=== PATIENT | female | born 1990 | race Two or more races ===

== ENCOUNTER 2025-01-24 22:17 | Emergency (ER) | payer SELFPAY ==
[2025-01-24 22:20] VITALS: BMI 18.8
[2025-01-24 22:53] VITALS: BP 120/76; PULSE 83; RESP 18; TEMP 36.8; O2SAT 100
--- NOTE | 2025-01-24 23:48 | EKG_ITS ---
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
--- NOTE | 2025-01-25 00:19 | PD.EDRME ---
Rapid Medical Screening Exam RME Arrival date/time: 01/24/25 22:17 34F with history of anxiety/panic attacks and tubal ligation presents to ED with 2 days of CP and SOB. Patient denies URI symptoms and SI/HI. Chief Complaint: General Adult/Misc Complain Time Seen by Provider: 01/25/25 00:10 Vital signs: Vital Signs Temperature 98.3 F 01/24/25 22:53 Pulse Rate 83 01/24/25 22:53 Respiratory Rate 18 01/24/25 22:53 Blood Pressure 120/76 01/24/25 22:53 Pulse Oximetry (%) 100 01/24/25 22:53 Oxygen Delivery Method Room Air 01/24/25 22:53
== END 2025-01-25 00:29 | disposition left against medical advice (07) ==
LOC: SERX 01-25 00:36
PROVIDERS: Emergency Provider Emergency Medicine
DX: R06.02 Shortness of breath (principal); Z53.29 Procedure and treatment not carried out because of patient's decision for other reasons
CPT/HCPCS: 93005; 99281

== ENCOUNTER 2025-03-17 18:46 | Emergency (ER) | payer BC, SELFPAY ==
--- NOTE | 2025-03-17 18:59 | EKG_ITS ---
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
[2025-03-17 19:06] VITALS: BP 134/76; PULSE 87; RESP 20; TEMP 36.4; O2SAT 99; BMI 19.0
--- NOTE | 2025-03-17 19:30 | EDNOTE_ITS ---
<Statement entered by Janeth Lowry MD - 03/19/25 04:27> As co-signing physician, I was present and available for consult prn. I concur with the plan and care as documented by the midlevel provider. ED Anxiety RME/HPI General Chief Complaint: Shortness of Breath/Dyspnea Stated Complaint: HEART FEELS LIKE IT'S SKIPPING X 1400 WITH SOB Time Seen by Provider: 03/17/25 19:22 Arrival date/time: 03/17/25 18:46 34F with no significant PMH presents to ED with 1 day of heart palpitations. This has been an intermittent chronic problem for her as she had a normal Holter monitor about 5 years ago. Patient states she took half a Xanax but didn't feel different. Limitations: no limitations Related Data Previous Rx's ?Medication ?Instructions ?Recorded acetaminophen 325 mg capsule 650 mg (2 x 325 mg) PO QI D PRN 07/10/21 pain #60 caps ibuprofen 600 mg tablet 600 mg PO Q6H PRN pain #30 t abs 07/10/21 omeprazole 20 mg capsule,delayed 20 mg PO QDAY #30 cap s 12/02/21 release Allergies Allergy/AdvReac Type Severity Reaction Status Date / Time cephalexin Allergy Severe Hives Verified 03/17/25 18:49 ciprofloxacin (From Cipro) Allergy Severe rash Verified 03/17/25 18:49 codeine Allergy Severe Hives Verified 03/17/25 18:49 nitrofurantoin Allergy Severe HIVES, Verified 03/17/25 18:49 TROUBLE BREATHING sulfamethoxazole Allergy Severe Hives Verified 03/17/25 18:49 trimethoprim Allergy Severe Hives Verified 03/17/25 18:49 Review of Systems Review of Systems Systems Reviewed: All systems reviewed, normal except as documented Constitutional Constitutional: Reports system reviewed and no additional complaints, except as documented, Denies fever(s) and Denies headache(s) ENT Ears, Nose, Mouth, and Throat: Denies disequilibrium and Denies headache(s) Cardiovascular Cardiovascular: Reports system reviewed and no additional complaints, except as documented, Denies chest pain, Denies dyspnea and Reports palpitations Respiratory Respiratory: Reports system reviewed and no additional complaints, except as documented, Denies cough and Denies dyspnea Gastrointestinal Gastrointestinal: Reports system reviewed and no additional complaints, except as documented, Denies abdominal pain, Denies nausea and Denies vomiting Neurologic Neurologic: Reports system reviewed and no additional complaints, except as documented, Denies confusion, Denies disequilibrium and Denies headache(s) Psychiatric Psychiatric: Denies confusion Endocrine Endocrine: Reports palpitations Past Medical History Past Medical History CARDIAC: Negative Cardiac Disorders or Congestive Heart Failure RESPIRATORY: Positive Tuberculosis; Negative Chronic Obstructive Pulmonary Disease (COPD) or Asthma GASTROINTESTINAL: Positive Gastrointestinal Disorders and Pancreatitis GENITOURINARY: Negative Renal Disease ENDOCRINE: Negative Diabetes Mellitus Type 1 or Diabetes Mellitus Type 2 HEMATOLOGIC: Negative Sickle Cell Disease Surgical History SURGICAL: Positive Tubal Ligation and Section Social History SMOKING STATUS: Never smoker SUBSTANCE USE: does not use ED Exam General Limitations: Present no limitations General appearance: Present alert, in no apparent distress and anxious Head Head exam: Present atraumatic Eye Eye exam: Present normal appearance, PERRL and EOMI ENT ENT exam: Present normal exam, normal oropharynx and mucous membranes moist Neck Neck exam: Present normal inspection, full ROM and trachea midline Chest Chest inspection: Present normal inspection and symmetric chest wall rise Respiratory Respiratory exam: Present normal lung sounds bilaterally Cardiovascular Cardiovascular exam: Present regular rate, normal rhythm and normal heart sounds Abdominal Exam Abdominal exam: Present soft and normal bowel sounds Extremities Exam Extremities exam: Present normal inspection and full ROM Back Exam Back exam: Present normal inspection and full ROM Neurological Exam Neurological exam: Present alert, oriented X3 and CN II-XII intact Psychiatric Psychiatric exam: Present normal affect and normal mood Skin Skin exam: Present warm, dry, intact and normal color Course Quality Measures none Orders Category Date Time Status EKG (ED ONLY) *Do not use* NOW Care 03/17/25 18:59 Completed EKG (ED Only) Stat Exams 03/17/25 18:59 Draft CBC Stat Lab 03/17/25 19:22 Ordered CMP [Comprehensive Metabolic Panel] Stat Lab 03/17/25 19:22 Ordered Drug Screen,Urine Stat Lab 03/17/25 19:22 Ordered HCG Qualitative,Urine Stat Lab 03/17/25 19:22 Ordered TSH [Thyroid Stimulating Hormone] Stat Lab 03/17/25 19:22 Ordered Urinalysis, C/S if Indicated Stat Lab 03/17/25 19:22 Ordered Vital Signs Vital signs: Vital Signs Temperature 97.5 F 03/17/25 19:06 Pulse Rate 87 03/17/25 19:06 Respiratory Rate 20 03/17/25 19:06 Blood Pressure 134/76 H 03/17/25 19:06 Pulse Oximetry (%) 99 03/17/25 19:06 Oxygen Delivery Method Room Air 03/17/25 19:06 Anxiety MDM Narrative MDM Narrative: 34F with no significant PMH presents to ED with 1 day of heart palpitations. This has been an intermittent chronic problem for her as she had a normal Holter monitor about 5 years ago. Patient states she took half a Xanax but didn't feel different. Physical exam reveals normal WOB. Patient is afebrile, alert, but anxious. EKG is NSR. CXR normal. No leukocytosis. CMP unremarkable. Trop normal. TSH normal. UA clean. Tox/hcg neg. Cable Former given. Patient data External records reviewed:: [facility] previous records Clinical information provided by:: patient Social determinants that could affect healthcare access:: none Patient has the following chronic illnesses:: none How is presenting disease/condition affected by chronic disease/condition?: no chronic disease Evaluation data The following diagnostics were reviewed and interpreted by me:: lab results, radiology exam(s) and EKG tracing(s) Lab and/or radiology exams considered but not ordered:: ordered Interpretation Summary: above Medications / Prescriptions Medications or Prescriptions considered but not ordered:: not ordered Medication administrations:: n/a Consultations Consultation(s) initiated? (list below): No Diagnosis Differential diagnosis anxiety: hyperventilation, panic disorder, acute anxiety and other (heart palps w regular cardiac rhythm) Most likely diagnosis given after review of the tests above:: heart palps w regular cardiac rhythm Admission Indicated Admission indicated?: not indicated Admission Request Was there a request for admission?: No Disposition Plan Disposition Plan: Discharge Discharge Attestation Discharge Attestation: The patient and all family members were given an opportunity to ask questions and understood the discharge instructions. Discharge instructions specifically effects, indications for sooner follow up or return to the emergency department, and the expected course of current diagnosis. Patient condition: Stable Discharge Plan Plan Patient Disposition: HOME (Self Care) Discharge Disposition comment: Stable Prescriptions/Referrals Prescriptions/Med Rec: No Action ibuprofen 600 mg tablet 600 mg PO Q6H PRN (Reason: pain) Qty: 30 0RF acetaminophen 325 mg capsule 650 mg PO QID PRN (Reason: pain) Qty: 60 0RF omeprazole 20 mg capsule,delayed release(DR/EC) 20 mg PO QDAY Qty: 30 0RF Referrals: No Primary/Family,Physician [Primary Care Provider] - In 1 week Problem List Clinical Impression: Palpitations with regular cardiac rhythm Patient/Caregiver Discharge Instructions Education Materials: ED Palpitations Additional Instructions: Please follow-up with PCP within 24-48 hours and return immediately if symptoms worsen. Follow-up with brisket puller. Print Language: Mauritanian Stand Alone Forms: Patient Portal Info Letter BOLA/PERI Supervising Physician GAVIN Supervising Physician: Dr. Lowry
--- NOTE | 2025-03-17 19:35 | XR_ITS ---
Examination: PA chest single view TECHNIQUE: Upright PA chest single view INDICATIONS: Tachycardia today FINDINGS: Normal heart size No pulmonary edema Minor atelectasis left base Prominent osteopenia IMPRESSION: Normal heart size No pulmonary edema
[2025-03-17 19:43] LABS: Basophils # (Auto) 0.1 Thou/mm3 (0.0-0.2); Basophils % (Auto) 1 % (0-2.5); Eosinophils # (Auto) 0.1 Thou/mm3 (0.0-0.5); Eosinophils % (Auto) 1 % (0-10); Hematocrit 39.6 % (36.0-46.0); Hemoglobin 14.3 g/dL (12.0-16.0); Immature Granulocytes % (Auto) 0 % (0-0); Immature Granulocytes Auto 0.02 Thou/mm3 (0.00-0.00); Lymphocytes # (Auto) 1.7 Thou/mm3 (1.0-4.8); Lymphocytes % (Auto) 22 % (10-50); Mean Corpuscular HGB Conc 36.1 g/dl (31.0-37.0); Mean Corpuscular Hemoglobin 32.4 pg (25.0-35.0); Mean Corpuscular Volume 90 fL (80-100); Monocytes # (Auto) 0.4 Thou/mm3 (0.0-0.8); Monocytes % (Auto) 5 % (0-12); Neutrophils # (Auto) 5.5 Thou/mm3 (1.8-7.7); Neutrophils % (Auto) 71 % (37-80); Nucleated Red Blood Cell % 0 /100 WBC (0); Platelet Count 262 Thou/mm3 (140-440); RDW Standard Deviation 38.8 fL (36.4-46.3); Red Blood Count 4.42 Miln/mm3 (4.00-5.20); White Blood Count 7.7 Thou/mm3 (3.6-11.0)
[2025-03-17 19:59] LABS: Collection Type, Urine Clean Catch
[2025-03-17 20:02] LABS: Amphetamine/Methamp Scrn,U Negative (Negative); Barbiturate Screen,Urine Negative (Negative); Benzodiazepines Screen,Urine Negative (Negative); Benzoylecgonine Screen, Ur Negative (Negative); Fentanyl Screen,Urine Negative (Negative); Opiate Screen,Urine Negative (Negative); THC Screen,Urine Negative (Negative)
[2025-03-17 20:05] LABS: HCG Qualitative,Urine Negative
[2025-03-17 20:08] LABS: Alanine Aminotransferase 32 U/L (10-49); Albumin, Serum 4.8 gm/dL (3.5-5.0); Albumin/Globulin Ratio 1.5 (1.2-2.2); Alkaline Phosphatase 63 U/L (46-116); Anion Gap 7 (7-16); Aspartate Amino Transferase 20 U/L (0-34); BUN/Creatinine Ratio 11 Ratio (12-20); Bilirubin,Total 0.7 mg/dL (0.3-1.2); Blood Urea Nitrogen 9 mg/dL (9-23); Calcium 10.1 mg/dL (8.3-10.6); Calcium (Corrected) 10.1 mg/dL (8.5-10.1); Carbon Dioxide 23.9 mMol/L (20.0-31.0); Chloride 106 mMol/L (98-107); Creatinine (Component) 0.8 mg/dL (0.6-1.3); Globulin 3.2 gm/dL (2.3-3.5); Glucose 126 mg/dL (74-106); Osmolality,Calculated 274 (275-295); Potassium 3.4 mMol/L (3.4-5.1); Sodium 137 mMol/L (136-145); Thyroid Stimulating Hormone 2.27 uIU/mL (0.55-4.78); Troponin I < 0.002 ng/mL (0.0-0.045); eGFR > 60 See Note
[2025-03-17 20:11] LABS: Bacteria,Urine Rare; Bilirubin,Urine Negative (Negative); Blood,Urine Negative (Negative); Clarity,Urine Clear (Clear/Hazy); Color,Urine Colorless (Lt Yel-Yel); Culture Indicated,Urine Not Indicated; Glucose, Urine Negative (Negative); Ketones,Urine Negative (Negative); Leukocyte Esterase,Urine Negative (Negative); Nitrite,Urine Negative (Negative); PH,Urine 6.5 (5.0-7.0); Protein,Urine Negative (Neg - Trace); RBC,Urine 1 /hpf (0-3); Specific Gravity,Urine 1.007 (1.001-1.035); Squamous Epithelial Cell,Urine 2 /hpf (0-5); Urobilinogen,Urine Negative mg/dL (0.0-1.0); WBC,Urine 1 /hpf (0-5)
[2025-03-17 21:52] VITALS: BP 124/77; PULSE 77
== END 2025-03-17 21:53 | disposition home or self-care (01) ==
PROVIDERS: Physician Assistant; Emergency Provider Emergency Medicine
DX: R00.2 Palpitations (principal)
CPT/HCPCS: 36415; 71045; 80053; 80307; 81001; 81025; 84443; 84484; 85025; 93005; 99283

== ENCOUNTER → 2025-06-08 | Outpatient (CLI) | payer BC, SELFPAY ==
--- NOTE | 2025-06-08 13:00 | XR_ITS ---
Examination: Transvaginal ultrasound of the pelvis, complete Technique: Transvaginal sonographic images pelvis performed using blancas scale imaging Exam date and time: June 08, 2025 1321 hours INDICATIONS: Right-sided pelvic pain beginning 3 years ago. FINDINGS: Uterus 9.4 cm retroverted Uterine fundal mass near endometrium 17 x 10 x 16 mm Endometrial stripe 15 mm Right ovary 3.8 cm arterial flow multiple follicles, the largest 23 mm, mild fluid adjacent to the ovary Left ovary 3.3 cm arterial flow small follicles IMPRESSION: Small uterine fundal area of fibroid degeneration 17 x 10 x 16 mm Multiple right ovarian follicular cysts, the largest 23 x 19 x 18 mm, mild free fluid adjacent to the right ovary, differential would include recent rupture of a right ovarian cyst, pelvic inflammatory disease, clinical correlation advised.
--- NOTE | 2025-06-08 13:00 | XR_ITS ---
Examination: Pelvic ultrasound, transabdominal, complete Technique: Transabdominal ultrasound of the pelvis performed using grayscale imaging Date and time of exam: June 08, 2025 1312 hours INDICATIONS: Right-sided pelvic pain beginning 3 weeks ago. FINDINGS: Uterus 9.7 cm endometrial stripe 1.4 cm No uterine mass or intrauterine gestation Right ovary 4.0 cm arterial flow 25 x 13 mm cyst Left ovary 4.1 cm arterial flow IMPRESSION: No uterine mass or intrauterine gestation Right ovarian simple cyst 25 x 13 x 13 mm
== END | disposition home or self-care (01) ==
LOC: CDIM 12:39
PROVIDERS: PCP Nurse Practitioner Family; Referring Provider Nurse Practitioner Family; Visit Provider Nurse Practitioner Family
DX: N83.291 Other ovarian cyst, right side (principal); D25.9 Leiomyoma of uterus, unspecified; N83.01 Follicular cyst of right ovary
CPT/HCPCS: 76830; 76856